=== PATIENT | male | born 1955 | race Caucasian/White ===

== ENCOUNTER 2017-04-12 15:40 | Inpatient (IN) | payer BC ==
[~2017-04-12] VITALS: Ht 185.4 cm; Wt 132.1 kg
[2017-04-12] MEDS ORDERED: OPTIRAY 320 IV PRN (16:15)
[2017-04-12] MEDS ORDERED: LISI20TA3 PO (16:39)
[2017-04-12 16:55] LABS: BASO % 0.3 %; BASO ABS # 0.03 K/uL (0-0.2); COMPLETE YES; EOS % 2.9 %; HEMATOCRIT 43.5 % (42-52); IG% 0.2 %; LYMPH % 28.1 %; LYMPH ABS # 2.64 K/uL (1.2-3.4); MEAN CELL VOLUME 88.6 fL (80-100); MEAN CORPUSCULAR HEMOGLOBIN 30.1 pg (25-34); MEAN PLATELET VOLUME 9.5 fL (7.4-10.4); MONO % 9.7 %; NEUT % 58.8 %; PLATELET COUNT 107 K/uL (130-400); RED BLOOD COUNT 4.91 M/uL (4.7-6.1); WHITE BLOOD COUNT 9.38 K/uL (4.8-10.8)
[2017-04-12 17:05] LABS: PROTHROMBIN TIME (PATIENT) 10.4 SECONDS (9.0-12.0)
[2017-04-12 17:07] LABS: ISTAT CREATININE 1.3 mg/dl (0.6-1.3); ISTAT HEMOGLOBIN 15.3 g/dl (14.0-18.0); ISTAT IONIZED CALCIUM 1.19 mmol/l (1.12-1.32)
[2017-04-12 17:20] LABS: BUN/CREATININE RATIO 20.1 (10-20); CALCIUM 9.1 mg/dl (8.5-10.1); CREATININE 1.3 mg/dl (0.60-1.40); POTASSIUM 4.3 mmol/L (3.5-5.1)
--- NOTE | 2017-04-12 17:50 | DIAGNOSTIC IMAGING REPORT ---
(CHEST FOR PE) ANGIO WITH CT DOSE: 683.80 mGycm HISTORY: Chest pain dyspnea TECHNIQUE: Multiaxial CT images of the chest were performed following the intravenous administration of contrast to evaluate the pulmonary arteries. Maximal intensity projection images were also obtained. A dose lowering technique was utilized adhering to the principles of ALARA. COMPARISON STUDY: None. FINDINGS: Study is positive for diffuse bilateral pulmonary emboli. This involves the left main pulmonary artery with additional involvement of the upper and lower lobe pulmonary arterial vasculature of the left. There is involvement of the right lower lobe pulmonary vasculature on the right. There is no involvement of the main pulmonary artery on the right. There is no evidence for central embolus. Cardiac silhouette is unremarkable. Lungs are considered clear at this time. Minimal lateral pleural thickening right midlung is present with a small calcified granuloma left lung base. IMPRESSION: Extensive bilateral pulmonary emboli. This report was phoned to the emergency room The above report was generated using voice recognition software. It may contain grammatical, syntax or spelling errors. Electronically signed by: Homero Calloway M.D. 04/12/2017 5:25 PM Dictated Date/Time: 04/12/2017 5:19 PM
[2017-04-12] MEDS ORDERED: HEPARIN 25000 UNIT/500 ML D5W ONE (18:25)
[2017-04-12] MEDS ORDERED: HEPARIN SOD 5000 UNIT/0.5 ML CARP ONE (18:25)
[2017-04-12] MEDS ORDERED: ACETAMINOPHEN 325 MG TAB PO PRN (18:30)
[2017-04-12] MEDS ORDERED: ONDANSETRON INJ 2 MG/ML 2 ML VIAL IV PRN (18:30)
--- NOTE | 2017-04-12 18:39 | EMERGENCY ROOM VISIT NOTE ---
History Report prepared by Reynaldo: Rozina Li Under the Supervision of: Dr. Marcelo Duran D.O. First contact with patient: 15:58 Chief Complaint: ABNORMAL DIAGNOSTIC TESTING Stated Complaint: DVT RT LEG, PAIN AND SWELLING History of Present Illness The patient is a 61 year old male who presents to the Emergency Room with complaints of persistent right leg swelling that began several weeks ago. He currently rates his discomfort as an 8/10 in severity. The patient states that he first noticed the pain behind his right knee cap. He states that he has noticed pain to his burgos and thigh. The patient states that recently he has been experiencing shortness of breath with his exertion. He states that he was mowing the grass recently and became short of breath. The patient states that today he saw his PCP and had an ultrasound. He states that the ultrasound revealed a DVT. The patient states that he was referred to the emergency department for further diagnostic testing. He denies any chest pain. Source of History: patient Onset: several weeks ago Position: leg (right) Symptom Intensity: 8/10 Quality: other (swelling) Timing: other (persistent) Associated Symptoms: + SOB, No chest pain Review of Systems See HPI for pertinent positives & negatives. A total of 10 systems reviewed and were otherwise negative. Past Medical & Surgical Medical Problems: (1) Asthma (2) Bilateral pulmonary embolism (3) DVT (deep venous thrombosis) (4) Hypertension (5) Kidney stone Family History Diabetes mellitus Heart disease Hypertension Social History Smoking Status: Former Smoker Smokeless Tobacco Use: No Alcohol Use: none Marital Status: Housing Status: lives with significant other Occupation Status: employed Current/Historical Medications Scheduled Lisinopril (Prinivil), 20 MG PO Q2D Allergies Coded Allergies: Penicillins (Verified Allergy, Unknown, UNKNOWN, 04/12/17) Sulfa Drugs (Verified Allergy, Unknown, UNKNOWN, 04/12/17) Physical Exam Vital Signs Date Time Temp Pulse Resp B/P (MAP) Pulse Ox O2 Delivery O2 Flow Rate FiO2 04/12/17 18:36 72 18 127/84 95 Room Air 04/12/17 17:01 66 04/12/17 16:59 94 Room Air 04/12/17 15:48 36.8 66 20 148/93 95 Room Air Physical Exam CONSTITUTIONAL/VITAL SIGNS: Reviewed / noted above. GENERAL: Non-toxic in appearance. INTEGUMENTARY: Warm, dry, and [place]. HEAD: Normocephalic. EYES: without scleral icterus or trauma. ENT/OROPHARYNX: clear and moist. LYMPHADENOPATHY/NECK: Is supple without lymphadenopathy or meningismus. RESPIRATORY: Lungs clear and equal. CARDIOVASCULAR: Regular rate and rhythm. GI/ABDOMEN: Soft and nontender. No organomegaly or pulsatile mass. No rebound or guarding. Normal bowel sounds. EXTREMITIES: Right leg is swollen compared to left. BACK: No CVA tenderness. NEUROLOGICAL: Intact without focal deficits. PSYCHIATRIC: normal affect. MUSCULOSKELETAL: Normally developed with good muscle tone. Medical Decision & Procedures ER Provider Diagnostic Interpretation: CT results as stated below per my review and radiologist interpretation: (CHEST FOR PE) ANGIO WITH CT DOSE: 683.80 mGycm HISTORY: Chest pain dyspnea TECHNIQUE: Multiaxial CT images of the chest were performed following the intravenous administration of contrast to evaluate the pulmonary arteries. Maximal intensity projection images were also obtained. A dose lowering technique was utilized adhering to the principles of ALARA. COMPARISON STUDY: None. FINDINGS: Study is positive for diffuse bilateral pulmonary emboli. This involves the left main pulmonary artery with additional involvement of the upper and lower lobe pulmonary arterial vasculature of the left. There is involvement of the right lower lobe pulmonary vasculature on the right. There is no involvement of the main pulmonary artery on the right. There is no evidence for central embolus. Cardiac silhouette is unremarkable. Lungs are considered clear at this time. Minimal lateral pleural thickening right midlung is present with a small calcified granuloma left lung base. IMPRESSION: Extensive bilateral pulmonary emboli. This report was phoned to the emergency room The above report was generated using voice recognition software. It may contain grammatical, syntax or spelling errors. Electronically signed by: Homero Calloway M.D. 04/12/2017 5:25 PM Dictated Date/Time: 04/12/2017 5:19 PM Laboratory Results 04/12/17 16:45 Red Blood Count 4.91, Mean Corpuscular Volume 88.6, Mean Corpuscular Hemoglobin 30.1, Mean Corpuscular Hemoglobin Concent 34.0, Mean Platelet Volume 9.5, Neutrophils (%) (Auto) 58.8, Lymphocytes (%) (Auto) 28.1, Monocytes (%) (Auto) 9.7, Eosinophils (%) (Auto) 2.9, Basophils (%) (Auto) 0.3, Neutrophils # (Auto) 5.51, Lymphocytes # (Auto) 2.64, Monocytes # (Auto) 0.91, Eosinophils # (Auto) 0.27, Basophils # (Auto) 0.03 04/12/17 16:45 Test 04/12/17 16:45 04/12/17 16:54 04/12/17 18:24 White Blood Count 9.38 K/uL (4.8-10.8) Red Blood Count 4.91 M/uL (4.7-6.1) Hemoglobin 14.8 g/dL (14.0-18.0) Hematocrit 43.5 % (42-52) Mean Corpuscular Volume 88.6 fL (80-100) Mean Corpuscular Hemoglobin 30.1 pg (25-34) Mean Corpuscular Hemoglobin Concent 34.0 g/dl (32-36) Platelet Count 107 K/uL (130-400) Mean Platelet Volume 9.5 fL (7.4-10.4) Neutrophils (%) (Auto) 58.8 % Lymphocytes (%) (Auto) 28.1 % Monocytes (%) (Auto) 9.7 % Eosinophils (%) (Auto) 2.9 % Basophils (%) (Auto) 0.3 % Neutrophils # (Auto) 5.51 K/uL (1.4-6.5) Lymphocytes # (Auto) 2.64 K/uL (1.2-3.4) Monocytes # (Auto) 0.91 K/uL (0.11-0.59) Eosinophils # (Auto) 0.27 K/uL (0-0.5) Basophils # (Auto) 0.03 K/uL (0-0.2) RDW Standard Deviation 41.0 fL (36.4-46.3) RDW Coefficient of Variation 12.7 % (11.5-14.5) Immature Granulocyte % (Auto) 0.2 % Immature Granulocyte # (Auto) 0.02 K/uL (0.00-0.02) Prothrombin Time 10.4 SECONDS (9.0-12.0) Prothromb Time International Ratio 1.0 (0.9-1.1) Activated Partial Thromboplast Time 26.5 SECONDS (21.0-31.0) Partial Thromboplastin Ratio 1.0 Est Creatinine Clear Calc Drug Dose 86.0 ml/min Estimated GFR () 68.3 Estimated GFR (Non- 58.9 BUN/Creatinine Ratio 20.1 (10-20) Calcium Level 9.1 mg/dl (8.5-10.1) Total Bilirubin 0.8 mg/dl (0.2-1) Direct Bilirubin 0.2 mg/dl (0-0.2) Aspartate Amino Transf (AST/SGOT) 17 U/L (15-37) Alanine Aminotransferase (ALT/SGPT) 27 U/L (12-78) Alkaline Phosphatase 87 U/L (45-117) Total Creatine Kinase 120 U/L (39-308) Creatine Kinase MB 1.2 ng/ml (0.5-3.6) Creatine Kinase MB Ratio 1.0 (0-3.0) Troponin I 0.030 ng/ml (0-0.045) Total Protein 7.8 gm/dl (6.4-8.2) Albumin 3.6 gm/dl (3.4-5.0) Lipase 134 U/L (73-393) Bedside Hemoglobin 15.3 g/dl (14.0-18.0) Bedside Hematocrit 45 % (42-52) Bedside Sodium 137 mEq/L (135-144) Bedside Potassium 4.3 mEq/L (3.3-5.0) Bedside Chloride 103 mEq/L (101-112) Bedside Total CO2 24 mEq/l (24-31) Anion Gap 16.0 mmol/L (16-25) Bedside Blood Urea Nitrogen 27 mg/dl (7-18) Bedside Creatinine 1.3 mg/dl (0.6-1.3) Bedside Glucose (other) 100 mg/dl (70-99) Bedside Ionized Calcium (Andrea) 1.19 mmol/l (1.12-1.32) Laboratory results as stated above per my review. Medications Administered Medications (Trade) Dose Ordered Sig/Tatiana Route Start Time Stop Time Status Last Admin Dose Admin Heparin Sodium/ Dextrose 1 ea NOW STAT N/A 04/12/17 17:32 04/12/17 17:34 DC 04/12/17 18:29 1 EA Heparin Sodium/ Dextrose (Heparin 25,000 Unit/500ml D5W) 25,000 unit STK-MED ONCE .ROUTE 04/12/17 18:25 04/12/17 18:26 DC 04/12/17 18:28 25,000 UNIT Heparin Sodium (Porcine) (Heparin Sq 5000 Unit/0.5ml) 5,000 unit STK-MED ONCE .ROUTE 04/12/17 18:25 04/12/17 18:26 DC 04/12/17 18:27 5,000 UNIT ECG Indication: SOB/dyspnea Rate (beats per minute): 67 Rhythm: normal sinus Findings: no acute ischemic change, no ectopy ED Course 160: Previous medical records were reviewed. The patient was evaluated in room B10. A complete history and physical examination was performed. 1731: Ordered Heparin Sodium/Dextrose 1 ea NA. 1734: I discussed the patients case with Dorcas Call. She is going to evaluate the patient for further treatment. 175: I reevaluated the patient and he is resting comfortably. I discussed the exam findings with him and I discussed the treatment plan. He verbalized complete understanding and agreement. He is going to be evaluated for further treatment. Medical Decision Differentials considered include acute myocardial infarction, acute coronary syndrome, myocarditis, pericarditis, pericardial effusions /tamponade, esophageal perforation, thoracic aortic dissection, pulmonary embolism, pneumonia, pneumothorax, pancreatitis, shingles, acute cholecystitis, and perforated abdominal viscus. This is a 61-year-old male who presents from outpatient ultrasound with a diagnosis of DVT. His DVT is in the distal right lower extremity. He does report some exertional dyspnea. A CT scan of his chest reveals multiple bilateral PE. Blood work was reviewed. The patient was started on IV heparin. I spoke with the hospitalist, who will see the patient for further inpatient evaluation and care. The patient was hemodynamically stable during his stay. Medication Reconcilliation Current Medication List: was personally reviewed by me Blood Pressure Screening Patient's blood pressure: Elevated blood pressure Blood pressure disposition: Elevated BP felt to be situational, Did not require urgent referral Consults Time Called: 1731 Consulting Physician: Dorcas Call Returned Call: 1734 I discussed the patients case with Dorcas Call. She is going to evaluate the patient for further treatment. Impression Primary Impression: Bilateral pulmonary embolism Additional Impression: DVT (deep venous thrombosis) Scribe Attestation The scribe's documentation has been prepared under my direction and personally reviewed by me in its entirety. I confirm that the note above accurately reflects all work, treatment, procedures, and medical decision making performed by me. Departure Information Dispostion Being Evaluated By Hospitalist Referrals Emmanuel Mejia MD (PCP) Problem Qualifiers
[2017-04-12] MEDS ORDERED: OXYCODONE/ACETAMINOPHEN 5-325 TAB PO PRN (19:15)
[2017-04-12] MEDS ORDERED: MoRPHine SULFATE 4 MG/ML 1 ML CARP\\VIAL IV PRN (19:15)
[2017-04-12] MEDS ORDERED: MoRPHine SULFATE 4 MG/ML 1 ML CARP\\VIAL IV ONE (19:15)
[2017-04-12 20:12] VITALS: O2SAT 95
[2017-04-12 20:38] VITALS: BP 138/87; PULSE 82; TEMP 37.2; Ht 185.4 cm; Wt 132.1 kg
--- NOTE | 2017-04-12 20:58 | History and Physical ---
History & Physical Date & Time of Service: Apr 12, 2017 ~ 18:00 Chief Complaint: Shortness of Breath, Right Leg Swelling and Pain Primary Care Physician: Emmanuel Mejia MD History of Present Illness 61 year old male who presents to the ER with right leg swelling and pain and shortness of breath. Patient reports he first started to notice the shortness of breath about 2 weeks ago. He reports that it has been progressively getting worse and will get short of breath with minimal exertion. While mowing the grass with a push mower a couple of weeks ago he reports he felt very lightheaded and dizzy and almost passed out. He reports one additional near syncopal event since then. No headaches or blurred vision. He denies chest pain. He has noticed the right leg to started to swell over the past week. He has pain in his lower thigh extending into the calf. He denies abdominal pain, nausea, vomiting, or diarrhea. No fever or chills. He denies urinary symptoms. Outpatient US showed extensive DVT. CT chest in the ED is showing BL PE. He was started on IV Heparin. 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 Past Medical/Surgical History Medical Problems: (1) Hypertension Status: Chronic (2) Kidney stone Status: Resolved Surgical Problems: (1) H/O ventral hernia repair Status: Chronic Family History CVA MOTHER FH: CAD (coronary artery disease) FATHER MOTHER FH: diabetes mellitus FATHER Social History Smoking Status: Former Smoker Alcohol Use: occasionally Immunizations History of Tetanus Vaccine?: Yes Tetanus Immunization Date: Mar 13, 2013 Multi-Drug Resistant Organisms History of MDRO: No Allergies Coded Allergies: Penicillins (Verified Allergy, Unknown, UNKNOWN, 04/12/17) Sulfa Antibiotics (Verified Allergy, Unknown, UNKNOWN, 04/12/17) Home Medications Scheduled Apixaban (Eliquis), 5 MG PO BID Apixaban (Eliquis), 10 MG PO BID Lisinopril (Prinivil), 20 MG PO Q2D Review of Systems ROS per HPI, all other systems reviewed and negative Physical Exam Vital Signs Date Time Temp Pulse Resp B/P (MAP) Pulse Ox O2 Delivery O2 Flow Rate FiO2 04/12/17 20:12 36.8 72 18 127/84 95 04/12/17 18:36 72 18 127/84 95 Room Air 04/12/17 17:01 66 04/12/17 16:59 94 Room Air 04/12/17 15:48 36.8 66 20 148/93 95 Room Air General Appearance: no apparent distress Head: normocephalic, atraumatic Eyes: normal inspection, EOMI, sclerae normal ENT: hearing grossly normal Neck: supple, no JVD Respiratory/Chest: lungs clear, normal breath sounds, no respiratory distress Cardiovascular: regular rate, rhythm, normal peripheral pulses, + pertinent finding (+2-3 edema to RLE extending from thigh to calf) Abdomen/GI: normal bowel sounds, non tender, soft Extremities/Musculoskelatal: + calf tenderness, + swelling (RLE) Neurologic/Psych: no motor/sensory deficits, alert, normal mood/affect, oriented x 3 Skin: normal color, warm/dry Diagnostics Laboratory Results Results Past 24 Hours Test 04/12/17 16:45 04/12/17 16:54 04/12/17 18:24 04/12/17 20:14 Range/Units White Blood Count 9.38 4.8-10.8 K/uL Red Blood Count 4.91 4.7-6.1 M/uL Hemoglobin 14.8 14.0-18.0 g/dL Hematocrit 43.5 42-52 % Mean Corpuscular Volume 88.6 80-100 fL Mean Corpuscular Hemoglobin 30.1 25-34 pg Mean Corpuscular Hemoglobin Concent 34.0 32-36 g/dl Platelet Count 107 130-400 K/uL Mean Platelet Volume 9.5 7.4-10.4 fL Neutrophils (%) (Auto) 58.8 % Lymphocytes (%) (Auto) 28.1 % Monocytes (%) (Auto) 9.7 % Eosinophils (%) (Auto) 2.9 % Basophils (%) (Auto) 0.3 % Neutrophils # (Auto) 5.51 1.4-6.5 K/uL Lymphocytes # (Auto) 2.64 1.2-3.4 K/uL Monocytes # (Auto) 0.91 0.11-0.59 K/uL Eosinophils # (Auto) 0.27 0-0.5 K/uL Basophils # (Auto) 0.03 0-0.2 K/uL RDW Standard Deviation 41.0 36.4-46.3 fL RDW Coefficient of Variation 12.7 11.5-14.5 % Immature Granulocyte % (Auto) 0.2 % Immature Granulocyte # (Auto) 0.02 0.00-0.02 K/uL Prothrombin Time 10.4 9.0-12.0 SECONDS Prothromb Time International Ratio 1.0 0.9-1.1 Activated Partial Thromboplast Time 26.5 21.0-31.0 SECONDS Partial Thromboplastin Ratio 1.0 Sodium Level 138 136-145 mmol/L Potassium Level 4.3 3.5-5.1 mmol/L Chloride Level 105 98-107 mmol/L Carbon Dioxide Level 26 21-32 mmol/L Anion Gap 7.0 16.0 16-25 mmol/L Blood Urea Nitrogen 26 7-18 mg/dl Creatinine 1.30 0.60-1.40 mg/dl Est Creatinine Clear Calc Drug Dose 86.0 ml/min Estimated GFR () 68.3 Estimated GFR (Non- 58.9 BUN/Creatinine Ratio 20.1 10-20 Random Glucose 92 70-99 mg/dl Calcium Level 9.1 8.5-10.1 mg/dl Total Bilirubin 0.8 0.2-1 mg/dl Direct Bilirubin 0.2 0-0.2 mg/dl Aspartate Amino Transf (AST/SGOT) 17 15-37 U/L Alanine Aminotransferase (ALT/SGPT) 27 12-78 U/L Alkaline Phosphatase 87 45-117 U/L Total Creatine Kinase 120 39-308 U/L Creatine Kinase MB 1.2 0.5-3.6 ng/ml Creatine Kinase MB Ratio 1.0 0-3.0 Troponin I 0.030 0-0.045 ng/ml Total Protein 7.8 6.4-8.2 gm/dl Albumin 3.6 3.4-5.0 gm/dl Lipase 134 73-393 U/L Bedside Hemoglobin 15.3 14.0-18.0 g/dl Bedside Hematocrit 45 42-52 % Bedside Sodium 137 135-144 mEq/L Bedside Potassium 4.3 3.3-5.0 mEq/L Bedside Chloride 103 101-112 mEq/L Bedside Total CO2 24 24-31 mEq/l Bedside Blood Urea Nitrogen 27 7-18 mg/dl Bedside Creatinine 1.3 0.6-1.3 mg/dl Bedside Glucose (other) 100 70-99 mg/dl Bedside Ionized Calcium (Andrea) 1.19 1.12-1.32 mmol/l Diagnostic Radiology CTA CHEST IMPRESSION: Extensive bilateral pulmonary emboli. RLE DOPPLER US FINDINGS: Thrombus remains in within the right superficial femoral vein, popliteal vein, posterior tibial as well as peroneal veins. Compressibility is compromise. 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 Agree with above H and P. Briefly 61 m presents with right leg swelling and pain since about a week which is getting progressively worsened and also sob on exertion. He was found to have DVT by ultrasound in his PCP office. He ct scan showed b/l PE in Er. Currently resting comfortably and hemodynamically stable. Denies chest pain. No nausea. No fevers. p/e Ge not in distress Cvs s1 and s2 heard no murmurs Rs cta b/l no added sounds Abd benign Supervisor/Port Director non focal Ext right leg swollen. a/p Acute DVT B/L PE starting on iv heparin 'patient wants to be on novel anticoagulants will consult social service to help with insurance approval for newer anticoagulants monitor in tele HTn on lisinopril VTE Prophylaxis VTE Risk Assessment Done? Y/N: Yes Risk Level: High Given or contraindicated: Other Anticoagulation
[2017-04-12 21:04] LABS: HEMATOCRIT 44.4 % (42-52); MEAN CELL VOLUME 89.3 fL (80-100); MEAN CORPUSCULAR HEMOGLOBIN 30.2 pg (25-34); MEAN CORPUSCULAR HGB CONC 33.8 g/dl (32-36); MEAN PLATELET VOLUME 9.7 fL (7.4-10.4); PLATELET COUNT 114 K/uL (130-400); RED BLOOD COUNT 4.97 M/uL (4.7-6.1); WHITE BLOOD COUNT 9.74 K/uL (4.8-10.8)
[2017-04-12] MEDS: HEPARIN 25,000 UNIT/500ML D5W 500 ML IV PRN (22:22)
[2017-04-13 00:22] VITALS: BP 123/68; PULSE 62; TEMP 36.8; O2SAT 90
[2017-04-13 01:13] LABS: PARTIAL THROMBOPLASTIN RATIO 1.8
[2017-04-13] MEDS ORDERED: HEPARIN IV BOLUS 4,000 UNIT in SYRINGE 0 ML IV ONE (01:45)
[2017-04-13] MEDS: HEPARIN 25,000 UNIT/500ML D5W 500 ML IV PRN ×3 (01:52→08:48)
[2017-04-13 04:31] VITALS: BP 129/70; PULSE 53; TEMP 36.6; O2SAT 94
[2017-04-13 07:34] VITALS: BP 116/69; PULSE 54; TEMP 36.5; O2SAT 94
[2017-04-13 08:02] LABS: MEAN CELL VOLUME 87.9 fL (80-100); MEAN CORPUSCULAR HEMOGLOBIN 31.4 pg (25-34); MEAN CORPUSCULAR HGB CONC 35.8 g/dl (32-36); MEAN PLATELET VOLUME 9.2 fL (7.4-10.4); PLATELET COUNT 105 K/uL (130-400); RED BLOOD COUNT 4.55 M/uL (4.7-6.1); WHITE BLOOD COUNT 7.48 K/uL (4.8-10.8)
[2017-04-13 08:23] LABS: BUN/CREATININE RATIO 17.4 (10-20); CREATININE 1.2 mg/dl (0.60-1.40); POTASSIUM 4.5 mmol/L (3.5-5.1)
[2017-04-13 08:24] LABS: PARTIAL THROMBOPLASTIN RATIO 2.9
[2017-04-13] MEDS ORDERED: LISINOPRIL 20 MG TAB PO SCH (09:00)
--- NOTE | 2017-04-13 11:51 | ECHOCARDIOGRAM REPORT ---
*NOTICE TO RECEIVING LIBERTARIAN AGENCY This information is strictly Confidential and protected under [place] law. [place] law prohibits you from making any further disclosure of this information unless further disclosure is expressly permitted by the written consent of the person to whom it pertains or is authorized by law. A general authorization for the release of medical or other information is not sufficient for this purpose. Hospital accepts no responsibility if the information is made available to any other person, INCLUDING THE PATIENT. Interpretation Summary * Name: ZIGGY SANTACRUZ Study Date: 04/13/2017 08:38 AM * Patient Location: C.EDB HR: 58 * : 1955 (M/d/yyyy) Gender: Male Height: 71 in * Age: 61 yrs Ethnicity: CA Weight: 297 lb * Ordering Physician: Asha Croft * Referring Physician: Emmanuel Mejia * Performed By: Mohit Woodard RCS * * Reason For Study: Pulmonary Embolism * BSA: 2.5 m2 * The study was technically difficult. * There is no comparison study available. * -- Conclusions -- * Left ventricular systolic function is normal. * Ejection Fraction = 60-65%. * There is mild concentric left ventricular hypertrophy. * The left atrium is mildly dilated. * Diastolic dysfunction, Grade II (pseudonormalization pattern). * The right ventricular cavity size is normal (basal dimension <4.2 cm in right ventricular apical 4-chamber view). * The right ventricular systolic function is normal as assessed by tricuspid annular plane systolic excursion (TAPSE) (normal >1.5 cm). Procedure Details * A complete two-dimensional transthoracic echocardiogram was performed (2D, M-mode, Doppler and color flow Doppler). Left Ventricle * The left ventricle is normal in size. * Apical trabeculae are present. * There is mild concentric left ventricular hypertrophy. * Left ventricular systolic function is normal. * Ejection Fraction = 60-65%. * The left ventricular wall motion is normal. Right Ventricle * The right ventricular cavity size is normal (basal dimension <4.2 cm in right ventricular apical 4-chamber view). * The right ventricular systolic function is normal as assessed by tricuspid annular plane systolic excursion (TAPSE) (normal >1.5 cm). Atria * The left atrium is mildly dilated. * Right atrial size is normal. * There is no evidence of atrial septal defect, but resolution does not allow assessment for a patent foramen ovale. Mitral Valve * The mitral valve is normal. * There is no mitral valve stenosis. * Significant mitral regurgitation is absent. Tricuspid Valve * The tricuspid valve is not well visualized. * There is no tricuspid stenosis. * Significant tricuspid regurgitation is absent. Aortic Valve * The aortic valve is trileaflet. * Aortic stenosis is absent. * There is no significant aortic regurgitation. Pulmonic Valve * The pulmonary valve is not well seen, but the Doppler examination is normal without significant regurgitation or stenosis. Great Vessels * The aortic root and proximal ascending aorta are normal sized. Pericardium/Pleural * There is no pericardial effusion. Great Vessels * Normal inferior vena cava diameter and respiratory variation suggests normal central venous pressure. Left Ventricular Diastolic Function * Diastolic dysfunction, Grade II (pseudonormalization pattern). MMode 2D Measurements and Calculations IVSd 1.1 cm LVIDd 5.2 cm LVIDs 2.5 cm LVPWd 1.1 cm IVS/LVPW 1.1 FS 51.7 % EDV(Teich) 131.9 ml ESV(Teich) 23.0 ml EF(Teich) 82.6 % EDV(cubed) 144.0 ml ESV(cubed) 16.2 ml EF(cubed) 88.8 % LV mass(C)d 223.3 grams LV mass(C)dI 89.5 grams/m\S\2 SV(Teich) 108.9 ml SI(Teich) 43.7 ml/m\S\2 SV(cubed) 127.8 ml SI(cubed) 51.2 ml/m\S\2 Ao root diam 3.3 cm Ao root area 8.8 cm\S\2 LVOT diam 2.3 cm LVOT area 4.2 cm\S\2 EDV(MOD-sp4) 121.2 ml ESV(MOD-sp4) 32.6 ml EF(MOD-sp4) 73.1 % EDV(MOD-sp2) 113.7 ml ESV(MOD-sp2) 43.9 ml EF(MOD-sp2) 61.4 % SV(MOD-sp4) 88.6 ml SI(MOD-sp4) 35.5 ml/m\S\2 SV(MOD-sp2) 69.8 ml SI(MOD-sp2) 28.0 ml/m\S\2 Doppler Measurements and Calculations MV E max arianne 76.1 cm/sec MV A max arianne 54.8 cm/sec MV E/A 1.4 MV dec time 0.32 sec Ao V2 max 169.5 cm/sec Ao max PG 11.5 mmHg Ao max PG (full) 7.0 mmHg STARR(V,A) 2.6 cm\S\2 STARR(V,D) 2.6 cm\S\2 LV V1 max PG 4.5 mmHg LV V1 max 106.1 cm/sec
[2017-04-13 12:15] VITALS: BP 121/76; PULSE 58; TEMP 36.7; O2SAT 94
[2017-04-13] MEDS ORDERED: APIXABAN 2.5 MG TAB PO STA (13:04)
[2017-04-13] MEDS ORDERED: APIX1TAB3 PO ×2 (13:07→19:14)
--- NOTE | 2017-04-13 13:12 | Discharge Instructions ---
Discharge Instructions Admission Admission Date: Apr 12, 2017 at 18:26 Admission Diagnosis: Bilateral Pulmonary Embolism, Dvt. Discharge Care Plan - Problem: (1) DVT (deep venous thrombosis) (2) Pulmonary embolism Date of VTE Diagnosis: Apr 12, 2017 Time of VTE Diagnosis: 16:00 Care Plan - Goal(s): Decrease discomfort, Improve function Care Plan - Instructions: Activity Recommendations: limitations (as tolerated. no heavy lifting until seen by family doctor) Recommended Home Diet: AHA Phase I (2gmNa/LoCho) (iv heparin) Provider Instructions: Medication Instructions: * Warfarin is a medicine prescribed to prevent blood clots * Warfarin will thin your blood and help prevent new clots * Take your medications exactly as directed * Never skip a dose. Never take a double dose. If you miss a dose, take it as soon as you remember * It is important for your doctor to monitor your prothrombin time (PT). This is a lab test * Keep your appointment for lab tests Risk of Adverse Drug Reactions and Interactions: * Warfarin increases your risk of bleeding * The food you eat and other medications you take can affect how Warfarin works in your body * Ask your doctor about daily aspirin therapy * It is very important to talk with your doctor about all of the other medicines, antibiotics, vitamins or herbal products that you are taking * All of your medication must be approved by your doctor, including new medicines, as well as medicines you have taken before you started taking Warfarin Diet: * In order for Warfarin to work properly, it is important to keep your intake of Vitamin K as consistent as possible * You should avoid any sudden change in Vitamin K intake * Report any significant changes in your diet or weight to your doctor Call your Doctor if you experience any of the following: * Swelling or Pain in your leg * Sudden, continuous pain deep in a muscle * Pain that worsens when you are active or when you stand still for a long time * Chest Pain * Sudden Shortness of Breath * Rapid or pounding heart beat * Fainting * Dizziness * Cough with blood or bloody sputum * Sweating more than normal * Bruises * heavy or uncontrolled bleeding * Blood in your urine, stool or vomit * Black or tarry stools Caring for Your Self at Home: * Avoid sitting, standing or lying down for long periods without moving your legs and feet * When traveling by car, stop to get out and move around at least once every 3 hours * On long airplane, train or bus rides, get up and move around when possible * If you can't get up, wiggle your toes and tighten your calves to keep your blood moving Follow Up: * It is important for you to keep your follow up appointments with your medical provider. Follow-up Anticoagulation Therapy: Name and Phone number of Health professional/clinic/office monitoring the anticoagulation therapy: Next Date of PT/INR Laboratory Blood Draw: VTE Core Measures Inpt VTE Proph given/why not?: Other Anticoagulation Reason no anticoag overlap I/P: Treatment not indicated (DISCHARGING ON ELIQUIS ) Reason no anticoag overlap @DC: Treatment not indicated (DISCHARGING ON ELIQUIS ) Follow Up Follow-Up: FOLLOWUP WITH FAMILY DOCTOR Emmanuel Bunn ON March AT 10:45AM. ELIQUIS 10MG PO TWICE DAILY FOR ONE WEEK THEN ELIQUIS 5MG PO TWICE DAILY. DURATION OF ELIQUIS PER FAMILY DOCTOR. Work Instructions Return To Work: 1 day (MAY GO TO WORK TOMORROW. BUT NO STRENOUS ACTIVITY AND NO HEAVY LIFTING UNTIL SEEN BY PCP) Lifting Limitations: no more than 10 pounds (UNTIL SEEN BY FAMILY DOCTOR. NO STRENOUS ACTIVITY UNTIL SEEN BY PCP.) Sheila Bonilla Recommendations: Call your doctor if: * Temperature above 101 degrees * Pain not relieved by pain medicine ordered * There is increased drainage or redness from any incision * You have any unanswered questions or concerns. Your Doctors Instructions noted above were prepared by provider Olayinka Cheng.
[2017-04-13 14:24] VITALS: BP 121/76; PULSE 58; TEMP 36.7; O2SAT 94
--- NOTE | 2017-04-13 19:29 | Progress Note ---
Internal Med Progress Note Date of Service: Apr 13, 2017. Provider Documentation: SUBJECTIVE: RESTING COMFORTABLY AFEBRILE NO CHEST PAIN OR SOB NO PAIN IN HIS LEG TODAY WANTS TO BE DISCHARGED OBJECTIVE: Vital Signs-as noted below Exam: General-alert and awake. Not in distress ENT-normal hearing Neck-no neck masses Lungs-cta b/l no wheezing or crackles Heart-s1 and s2 heard regular rhythm no murmurs Abdomen-soft bowel sounds present non tender no distension Extremities- no erythema Neuro-alert and awake moves extremities Lab data as noted below. 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 - f/u with pcp hemodynamically stable, saturating well on room air started on IV Heparin discharged on eliquis followup with pcp duration of eliquis as per pcp HTN on Lisinopril discharged home Vital Signs: Date Time Temp Pulse Resp B/P (MAP) Pulse Ox O2 Delivery O2 Flow Rate FiO2 04/13/17 14:24 36.7 58 18 94 Room Air 04/13/17 12:15 36.7 58 18 121/76 (91) 94 04/13/17 08:00 Room Air 04/13/17 07:34 36.5 54 20 116/69 (85) 94 04/13/17 04:31 36.6 53 20 129/70 (89) 94 Room Air 04/13/17 04:00 Room Air 04/13/17 00:22 36.8 62 20 123/68 (86) 90 Room Air 04/13/17 00:00 Room Air 04/12/17 20:38 37.2 82 20 138/87 Room Air 04/12/17 20:12 36.8 72 18 127/84 95 Lab Results: Results Past 24 Hours Test 04/12/17 20:49 04/13/17 00:43 04/13/17 07:46 Range/Units White Blood Count 9.74 7.48 4.8-10.8 K/uL Red Blood Count 4.97 4.55 4.7-6.1 M/uL Hemoglobin 15.0 14.3 14.0-18.0 g/dL Hematocrit 44.4 40.0 42-52 % Mean Corpuscular Volume 89.3 87.9 80-100 fL Mean Corpuscular Hemoglobin 30.2 31.4 25-34 pg Mean Corpuscular Hemoglobin Concent 33.8 35.8 32-36 g/dl RDW Standard Deviation 42.0 41.3 36.4-46.3 fL RDW Coefficient of Variation 12.9 12.8 11.5-14.5 % Platelet Count 114 105 130-400 K/uL Mean Platelet Volume 9.7 9.2 7.4-10.4 fL Hepatitis C Antibody Screen NEG NEG Activated Partial Thromboplast Time 46.4 75.2 21.0-31.0 SECONDS Partial Thromboplastin Ratio 1.8 2.9 Sodium Level 140 136-145 mmol/L Potassium Level 4.5 3.5-5.1 mmol/L Chloride Level 106 98-107 mmol/L Carbon Dioxide Level 30 21-32 mmol/L Anion Gap 4.0 3-11 mmol/L Blood Urea Nitrogen 21 7-18 mg/dl Creatinine 1.20 0.60-1.40 mg/dl Est Creatinine Clear Calc Drug Dose 92.1 ml/min Estimated GFR () 75.2 Estimated GFR (Non- 64.9 BUN/Creatinine Ratio 17.4 10-20 Random Glucose 114 70-99 mg/dl Calcium Level 9.0 8.5-10.1 mg/dl
--- NOTE | 2017-04-13 19:31 | Discharge Summary ---
Discharge Summary Date of Service Apr 13, 2017. Discharge Summary Admission Date: Apr 12, 2017 at 18:26 Discharge Date: Apr 13, 2017 Discharge Disposition: Home Principal Diagnosis: ACUTE DVT ACUTE PE Secondary Diagnoses/Problems: (1) Hypertension Status: Chronic (2) Kidney stone Status: Resolved Procedures: CTA CHEST: Extensive bilateral pulmonary emboli. ECHO: Left ventricular systolic function is normal. * Ejection Fraction = 60-65%. * There is mild concentric left ventricular hypertrophy. * The left atrium is mildly dilated. * Diastolic dysfunction, Grade II (pseudonormalization pattern). * The right ventricular cavity size is normal (basal dimension <4.2 cm in right ventricular apical 4-chamber view). * The right ventricular systolic function is normal as assessed by tricuspid annular plane systolic excursion (TAPSE) (normal >1.5 cm). Medication Reconciliation New Medications: Apixaban (Eliquis) 5 Mg Tab 5 MG PO BID for 30 Days, #60 TAB 3 Refills Apixaban (Eliquis) 5 Mg Tab 10 MG PO BID for 7 Days, #28 TAB Continued Medications: Lisinopril (Prinivil) 20 Mg Tab 20 MG PO Q2D Admission Information HPI (per Admitting provider): 61 year old male who presents to the ER with right leg swelling and pain and shortness of breath. Patient reports he first started to notice the shortness of breath about 2 weeks ago. He reports that it has been progressively getting worse and will get short of breath with minimal exertion. While mowing the grass with a push mower a couple of weeks ago he reports he felt very lightheaded and dizzy and almost passed out. He reports one additional near syncopal event since then. No headaches or blurred vision. He denies chest pain. He has noticed the right leg to started to swell over the past week. He has pain in his lower thigh extending into the calf. He denies abdominal pain, nausea, vomiting, or diarrhea. No fever or chills. He denies urinary symptoms. Outpatient US showed extensive DVT. CT chest in the ED is showing BL PE. He was started on IV Heparin. 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 Physical Exam (per Admitting): General Appearance: no apparent distress Head: normocephalic, atraumatic Eyes: normal inspection, EOMI, sclerae normal ENT: hearing grossly normal Neck: supple, no JVD Respiratory/Chest: lungs clear, normal breath sounds, no respiratory distress Cardiovascular: regular rate, rhythm, normal peripheral pulses, + pertinent finding (+2-3 edema to RLE extending from thigh to calf) Abdomen/GI: normal bowel sounds, non tender, soft Extremities/Musculoskelatal: + calf tenderness, + swelling (RLE) Neurologic/Psych: no motor/sensory deficits, alert, normal mood/affect, oriented x 3 Skin: normal color, warm/dry Hospital Course ACUTE BILATERAL PE, RLE DVT presenting with 2 weeks of increasing shortness of breath and increased RLE for 1 week; outpatient US shows extensive RLE DVT and CT chest is showing BL PEs 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 Discharge Instructions Discharge Instructions Admission Admission Date: Apr 12, 2017 at 18:26 Admission Diagnosis: Bilateral Pulmonary Embolism, Dvt. Discharge Care Plan - Problem: (1) DVT (deep venous thrombosis) (2) Pulmonary embolism Date of VTE Diagnosis: Apr 12, 2017 Time of VTE Diagnosis: 16:00 Care Plan - Goal(s): Decrease discomfort, Improve function Care Plan - Instructions: Activity Recommendations: limitations (as tolerated. no heavy lifting until seen by family doctor) Recommended Home Diet: AHA Phase I (2gmNa/LoCho) (iv heparin) Provider Instructions: Medication Instructions: * Warfarin is a medicine prescribed to prevent blood clots * Warfarin will thin your blood and help prevent new clots * Take your medications exactly as directed * Never skip a dose. Never take a double dose. If you miss a dose, take it as soon as you remember * It is important for your doctor to monitor your prothrombin time (PT). This is a lab test * Keep your appointment for lab tests Risk of Adverse Drug Reactions and Interactions: * Warfarin increases your risk of bleeding * The food you eat and other medications you take can affect how Warfarin works in your body * Ask your doctor about daily aspirin therapy * It is very important to talk with your doctor about all of the other medicines, antibiotics, vitamins or herbal products that you are taking * All of your medication must be approved by your doctor, including new medicines, as well as medicines you have taken before you started taking Warfarin Diet: * In order for Warfarin to work properly, it is important to keep your intake of Vitamin K as consistent as possible * You should avoid any sudden change in Vitamin K intake * Report any significant changes in your diet or weight to your doctor Call your Doctor if you experience any of the following: * Swelling or Pain in your leg * Sudden, continuous pain deep in a muscle * Pain that worsens when you are active or when you stand still for a long time * Chest Pain * Sudden Shortness of Breath * Rapid or pounding heart beat * Fainting * Dizziness * Cough with blood or bloody sputum * Sweating more than normal * Bruises * heavy or uncontrolled bleeding * Blood in your urine, stool or vomit * Black or tarry stools Caring for Your Self at Home: * Avoid sitting, standing or lying down for long periods without moving your legs and feet * When traveling by car, stop to get out and move around at least once every 3 hours * On long airplane, train or bus rides, get up and move around when possible * If you can't get up, wiggle your toes and tighten your calves to keep your blood moving Follow Up: * It is important for you to keep your follow up appointments with your medical provider. Follow-up Anticoagulation Therapy: Name and Phone number of Health professional/clinic/office monitoring the anticoagulation therapy: Next Date of PT/INR Laboratory Blood Draw: VTE Core Measures Inpt VTE Proph given/why not?: Other Anticoagulation Reason no anticoag overlap I/P: Treatment not indicated (DISCHARGING ON ELIQUIS ) Reason no anticoag overlap @[facility]: Treatment not indicated (DISCHARGING ON ELIQUIS ) Follow Up Follow-Up: FOLLOWUP WITH FAMILY DOCTOR Emmanuel Bunn ON March AT 10:45AM. ELIQUIS 10MG PO TWICE DAILY FOR ONE WEEK THEN ELIQUIS 5MG PO TWICE DAILY. DURATION OF ELIQUIS PER FAMILY DOCTOR. Work Instructions Return To Work: 1 day (MAY GO TO WORK TOMORROW. BUT NO STRENOUS ACTIVITY AND NO HEAVY LIFTING UNTIL SEEN BY PCP) Lifting Limitations: no more than 10 pounds (UNTIL SEEN BY FAMILY DOCTOR. NO STRENOUS ACTIVITY UNTIL SEEN BY PCP.) Sheila Bonilla Recommendations: Call your doctor if: * Temperature above 101 degrees * Pain not relieved by pain medicine ordered * There is increased drainage or redness from any incision * You have any unanswered questions or concerns.
[2017-04-21 01:37] LABS: ANTITHROMBINIII ACTIVITY** 93 % activity (80-120); B2 GLYCOPROTEIN IGA <9 SAU (<=20); B2 GLYCOPROTEIN IGG <9 SGU (<=20); B2 GLYCOPROTEIN IGM <9 SMU (<=20); LUPUS ANTICOAGULANT** TC36573X Weak Positive (Negative); PROTEIN C ACTIVITY** TC 1777X 96 % (70-180)
== END 2017-04-13 14:29 | disposition home or self-care (01) | DRG 299 ==
LOC: C.EDB 15:42 → C.MED 18:26 → ENRESERV 18:46
PROVIDERS: ADMIT Internal Medicine; ATTEND Internal Medicine
DX: I82.401 Acute embolism and thrombosis of unspecified deep veins of right lower extremity (principal); I26.99 Other pulmonary embolism without acute cor pulmonale; I10 Essential (primary) hypertension; Z87.891 Personal history of nicotine dependence; Z79.899 Other long term (current) drug therapy; I82.4Y1 Acute embolism and thrombosis of unspecified deep veins of right proximal lower extremity; I82.4Z1 Acute embolism and thrombosis of unspecified deep veins of right distal lower extremity

== ENCOUNTER → 2017-04-12 | Outpatient (CLI) | payer BC ==
[~2017-04-12] MED LIST: APIX1TAB3 PO; LISI20TA3 PO
--- NOTE | 2017-04-12 15:24 | DIAGNOSTIC IMAGING REPORT ---
RIGHT VENOUS DOPP LOWER EXT UNILAT CLINICAL HISTORY: RT LEG PAIN AND SWELLING Right pain. Edema. TECHNIQUE: Ultrasound COMPARISON STUDY: None FINDINGS: Thrombus remains in within the right superficial femoral vein, popliteal vein, posterior tibial as well as peroneal veins. Compressibility is compromise. IMPRESSION: Acute deep venous thrombosis involving the distal thigh and lower leg The above report was generated using voice recognition software. It may contain grammatical, syntax or spelling errors. Electronically signed by: Homero Calloway M.D. 04/12/2017 3:22 PM Dictated Date/Time: 04/12/2017 3:22 PM
== END | disposition home or self-care (01) ==
LOC: C.ULTR 14:42
PROVIDERS: ATTEND Internal Medicine
DX: I82.4Y1 Acute embolism and thrombosis of unspecified deep veins of right proximal lower extremity (principal); I82.4Z1 Acute embolism and thrombosis of unspecified deep veins of right distal lower extremity

== ENCOUNTER 2021-09-03 09:40 | Inpatient (IN) ==
[2021-09-03] MEDS ORDERED: ACETAMINOPHEN 1,000 MG/100 ML VIAL IV STA (09:53)
--- NOTE | 2021-09-03 09:58 | Emergency Department Note ---
History of Present Illness General Chief complaint: Abdominal Pain Stated complaint: PAIN IN ULQ, POSSIBLE BLOOD CLOT Time Seen by Provider: 09/03/21 09:48 Source: patient Mode of arrival: ambulatory Limitations: no limitations History of Present Illness Provider complaint: Right rib pain, short of breath Onset (ago): day(s) 4 Location: chest Maximum Pain Intensity: 10 Associated symptoms: + shortness of breath; no chest pain, no cough, no fever/chills, no nausea/vomiting or no syncope Treatments prior to arrival: none This is a 65-year-old male presents emergency department complaining of 4 days of right rib pain and increasing shortness of breath. Patient denies any trauma or change in activity. Patient states the pain is similar to when he had broken ribs many years ago. Patient denies any recent cough or upper respiratory symptoms. He denies fevers or chills. Patient denies any other chest pain or radiation of the pain over the right lateral ribs. He denies nausea, vomiting, back pain, change in bowel or bladder function. He denies noticing any overlying rash or sores. Patient states he does not smoke currently, however used to smoke 4 packs a day. Patient states he did previously have a DVT that he was told went to his lungs. He states he took medication for that for several months and then he was able to stop. Denies any family history of DVT/PE. Denies any recent leg swelling or calf tenderness. Patient states breathing and pain are worse with exertion and attempts at laying flat. He states he had been taking Excedrin at home to try and deal with the pain without any relief. Pt seen during a time of high acuity and national emergency pandemic while wearing PPE. Home Medications Medication Instructions Recorded Confirmed Type No Known Home Medications 09/03/21 09/03/21 History Allergies Allergy/AdvReac Type Severity Reaction Status Date / Time Penicillins Allergy Unknown UNKNOWN Verified 04/12/17 16:39 Sulfa (Sulfonamide Allergy Unknown UNKNOWN Verified 04/12/17 20:16 Antibiotics) Past Med/Surg History Medical History History of DVT (deep vein thrombosis) History of pulmonary embolism Hypertension Surgical History H/O ventral hernia repair Family History Father Cancer Mother Hypertension Stroke Denies family history of Clotting disorder Social History (Updated 09/03/21 @ 13:23 by MANUELA Call) Smoking Status: Former smoker Hx Alcohol Use: Yes Alcohol type: beer Alcohol Intake Frequency: Monthly or Less Feels Safe at Home: Yes Review of Systems A total of 10 systems reviewed and were otherwise negative All systems reviewed & are unremarkable except as noted in HPI & below Physical Exam Vital Signs Vital Signs - 24 hr 09/03/21 09:44 09/03/21 10:50 09/03/21 12:00 Temperature 37.2 C Temperature Source Temporal Artery Scan Pulse Rate 79 Pulse Rate [Apical] 90 85 Pulse Rhythm [Apical] Regular Respiratory Rate 28 H 20 25 H Respiratory Effort / Characteristics Short of Breath Respiratory Depth Normal Respiratory Pattern Regular Blood Pressure 159/95 H Blood Pressure [Right Arm] 155/86 H 145/100 H Blood Pressure Mean 116 Blood Pressure Mean [Right Arm] 109 115 Blood Pressure Position Sitting Blood Pressure Position [Right Arm] Lying Pulse Oximetry 88 L 92 96 Oxygen Delivery Method Room Air Nasal Cannula Nasal Cannula Oxygen Flow Rate 2 2 Sepsis Recent Fever Within 48 Hours No Sepsis New/Unexplained Change in Mental Status No Sepsis Action Taken by Nursing No Action Required GENERAL: alert, uncomfortable appearing, well nourished, mild distress, non-toxic, standing up and pacing the room EYE EXAM: normal conjunctiva, PERRL and EOM's grossly intact OROPHARYNX: no exudate, no erythema, lips, buccal mucosa, and tongue normal and mucous membranes are moist NECK: supple, no nuchal rigidity, no adenopathy, non-tender LUNGS: Clear to auscultation. Normal chest wall mechanics, no w/r/r, tachypnea noted, no retractions, no increased work of breathing HEART: no murmurs, S1 normal and S2 normal, tachycardic ABDOMEN: abdomen soft, non-tender, normo-active bowel sounds, no masses, no rebound or guarding. BACK: Back is symmetrical on inspection and there is no deformity, no midline tenderness, no CVA tenderness. SKIN: no rashes and no bruising UPPER EXTREMITIES: upper extremities are grossly normal. FROM, nml pulses b/l. LOWER EXTREMITIES: No pitting edema. FROM, nml pulses b/l. NEURO EXAM: Normal sensorium, cranial nerves II-XII grossly intact, normal speech, no gross weakness of arms, no gross weakness of legs. Gross sensation intact. Course Course 1002: Pt still in mild distress, reluctant to sit in bed. IV started and EKG done. 1032: Pt updated on results and need for CT. Pain slightly improved with meds. 1152: Pt updated on results. Discussed with Dorcas Barry [facility] hospitalist [facility]. Administered Medications Fentanyl Citrate (Fentanyl Citrate 100 Mcg/2 Ml Vial) 50 mcg IV Q15M PRN PRN Reason: Pain Stop: 09/17/21 10:06 Last Admin: 09/03/21 12:08 Dose: 50 mcg Documented by: [id number] Admin: 09/03/21 10:13 Dose: 50 mcg Documented by: [id number] Sodium Chloride (Nss 1000ml) 1,000 mls @ 125 mls/hr IV .Q8H JIM Stop: 10/03/21 10:14 Last Infusion: 09/03/21 14:51 Dose: 0 mls/hr Documented by: [id number] Admin: 09/03/21 10:15 Dose: 125 mls/hr Documented by: [id number] Heparin Sodium/Dextrose (Heparin Sodium/Dextrose) 25,000 units in 500 mls @ 0.02 mls/hr IV .Q24H JIM; Protocol Stop: 10/03/21 12:14 Last Admin: 09/03/21 12:19 Dose: 1,800 units/hr, 36 mls/hr Documented by: [id number] Cosigned by: [id number] Morphine Sulfate (Morphine Sulfate 4 Mg/Ml 1 Ml Carp\Vial) 4 mg IV Q4H PRN PRN Reason: pain Stop: 09/17/21 12:49 Last Admin: 09/03/21 14:52 Dose: 4 mg Documented by: [id number] Discontinued Medications Heparin Sodium (Porcine) (Heparin Sod (Porcine) 1000 Unit/Ml) 1 units IV NOW ONE Stop: 09/03/21 12:03 Last Admin: 09/03/21 12:18 Dose: 5,000 units Documented by: [id number] Cosigned by: [id number] Acetaminophen (Ofirmev) 1,000 mg in 100 mls @ 400 mls/hr IV NOW STA Stop: 09/03/21 10:07 Last Infusion: 09/03/21 14:50 Dose: 0 mls/hr Documented by: [id number] Admin: 09/03/21 10:04 Dose: 400 mls/hr Documented by: [id number] Ioversol (Optiray 320 125ml) 120 ml IV ONCE ONE Stop: 09/03/21 11:16 Last Admin: 09/03/21 11:15 Dose: 120 ml Documented by: [id number] Critical Care Time Critical Care Time: Yes Total Critical Care Time: 43 Critical care of 43 min performed to assess and manage high likelihood of life- threatening pulmonary embolism, involving labs and imaging performed with a ssessment to evaluate chest pain diagnosis with frequent reassessment. This time includes bedside time, treatment discussions with patient/family/consultants, documentation time and excludes procedure time. Medical Decision Making Differential Diagnosis Differential diagnoses includes but is not limited to pneumonia, bronchitis, COPD/Asthma exacerbation, pneumothorax, pulmonary embolism, congestive heart failure, acute coronary syndrome Medical Records Attestation: I reviewed the patient's medical records. Home Medications Current Medication List: was personally reviewed by me Laboratory Data Attestation: I reviewed the patient's lab results. Result diagrams: 09/03/21 10:05 09/03/21 10:05 Lab Results 09/03/21 09/03/21 09/03/21 Range/Units 10:05 10:05 10:05 WBC 14.94 H (4.8-10.8) K/uL RBC 5.42 (4.7-6.1) M/uL Hgb 16.5 (14.0-18.0) g/dL Hct 48.6 (42-52) % MCV 89.7 (80-100) fL MCH 30.4 (25-34) pg MCHC 34.0 (32-36) g/dL RDW Std Deviation 43.8 (36.4-46.3) fL RDW Coeff of Demetris 13.4 (11.5-14.5) % Plt Count 129 L (130-400) K/uL MPV 10.1 (7.4-10.4) fL Immature Gran % (Auto) 0.3 % Neut % (Auto) 74.0 % Lymph % (Auto) 15.4 % Sibley % (Auto) 9.2 % Eos % (Auto) 1.0 % Baso % (Auto) 0.1 % Neut # (Auto) 11.05 H (1.4-6.5) K/uL Lymph # (Auto) 2.30 (1.2-3.4) K/uL Sibley # (Auto) 1.38 H (0.11-0.59) K/uL Eos # (Auto) 0.15 (0-0.5) K/uL Baso # (Auto) 0.02 (0-0.2) K/uL Immature Gran # (Auto) 0.04 H (0.00-0.02) K/uL D-Dimer 6250 H* (0-500) ug/L FEU Sodium 135 L (136-145) mmol/L Potassium 4.3 (3.5-5.1) mmol/L Chloride 105 (98-107) mmol/L Carbon Dioxide 24 (21-32) mmol/L Anion Gap 6.0 (3-11) BUN 21 H (7-18) mg/dl Creatinine 1.17 (0.6-1.4) mg/dl Est Cr Clr Drug Dosing Not Reportable Est GFR ( Amer) 75.4 ml/min Est GFR (Non-Af Amer) 65.0 ml/min BUN/Creatinine Ratio 17.7 (10-20) Glucose 130 H (70-99) mg/dl Calcium 10.1 (8.5-10.1) mg/dl Magnesium 2.0 (1.8-2.4) mg/dl Total Bilirubin 1.3 H (0.2-1) mg/dl AST 16 (15-37) U/L ALT 27 (12-78) Alkaline Phosphatase 78 (45-117) U/L Troponin I < 0.015 (0-0.045) ng/ml NT-Pro-B Natriuret Pep 527 (0-900) pg/ml Total Protein 8.7 H (6.4-8.2) gm/dl Albumin 3.5 (3.4-5.0) gm/dl Globulin 5.2 H (2.5-4.0) gm/dl Albumin/Globulin Ratio 0.7 L (0.9-2) Procalcitonin (0-0.5) ng/ml SARS-CoV-2 (PCR) (Negative) Influenza Type A (PCR) (Neg) Influenza Type B (PCR) (Neg) RSV (RT-PCR) (Neg) 09/03/21 09/03/21 Range/Units 10:05 10:30 WBC (4.8-10.8) K/uL RBC (4.7-6.1) M/uL Hgb (14.0-18.0) g/dL Hct (42-52) % MCV (80-100) fL MCH (25-34) pg MCHC (32-36) g/dL RDW Std Deviation (36.4-46.3) fL RDW Coeff of Demetris (11.5-14.5) % Plt Count (130-400) K/uL MPV (7.4-10.4) fL Immature Gran % (Auto) % Neut % (Auto) % Lymph % (Auto) % Sibley % (Auto) % Eos % (Auto) % Baso % (Auto) % Neut # (Auto) (1.4-6.5) K/uL Lymph # (Auto) (1.2-3.4) K/uL Sibley # (Auto) (0.11-0.59) K/uL Eos # (Auto) (0-0.5) K/uL Baso # (Auto) (0-0.2) K/uL Immature Gran # (Auto) (0.00-0.02) K/uL D-Dimer (0-500) ug/L FEU Sodium (136-145) mmol/L Potassium (3.5-5.1) mmol/L Chloride (98-107) mmol/L Carbon Dioxide (21-32) mmol/L Anion Gap (3-11) BUN (7-18) mg/dl Creatinine (0.6-1.4) mg/dl Est Cr Clr Drug Dosing Est GFR ( Amer) ml/min Est GFR (Non-Af Amer) ml/min BUN/Creatinine Ratio (10-20) Glucose (70-99) mg/dl Calcium (8.5-10.1) mg/dl Magnesium (1.8-2.4) mg/dl Total Bilirubin (0.2-1) mg/dl AST (15-37) U/L ALT (12-78) Alkaline Phosphatase (45-117) U/L Troponin I (0-0.045) ng/ml NT-Pro-B Natriuret Pep (0-900) pg/ml Total Protein (6.4-8.2) gm/dl Albumin (3.4-5.0) gm/dl Globulin (2.5-4.0) gm/dl Albumin/Globulin Ratio (0.9-2) Procalcitonin 0.12 (0-0.5) ng/ml SARS-CoV-2 (PCR) NEGATIVE (Negative) Influenza Type A (PCR) Negative (Neg) Influenza Type B (PCR) Negative (Neg) RSV (RT-PCR) Negative (Neg) Imaging Data Radiologist's Impression: Chest X-Ray 09/03/21 09:53 XR chest 1V portable CLINICAL HISTORY: right lateral cp, sob TECHNIQUE: Single frontal radiograph of the chest was obtained. Comparison: None available at the time of this dictation. FINDINGS: No lines and tubes are seen. The cardiomediastinal silhouette is normal. Bilateral lower lung predominant airspace opacities are seen. No evidence of pleural effusion or pneumothorax. IMPRESSION: Bilateral lower lung predominant airspace opacities which may represent atelectasis, pneumonia, and/or aspiration. ACT 112: Negative or not required by law. Electronically signed by: Too Wilkinson M.D. 09/03/2021 10:15 AM Chest CTA 09/03/21 10:09 CT angio chest PE protocol CT DOSE: 1000.22 mGy.cm HISTORY: 65 years-old Male with PE. Acute shortness of breath with right-sided chest pain TECHNIQUE: Multiple CTA images of the chest were obtained after the intravenous administration of 120 ml Optiray. Coronal and sagittal MIPS were obtained from the axial data set and were submitted for review. All measurements were obtained according to NASCET criteria. A dose lowering technique was utilized adhering to the principles of ALARA. COMPARISON: Chest radiograph of same day, CTA chest 04/12/2017 FINDINGS: CTA: Mild cardiomegaly with mild coronary artery calcifications. No thoracic aortic aneurysm or dissection. Patency of the imaged great vessels. There is extensive bilateral pulmonary emboli which are noted within the distal main pulmonary arteries extending into the lobar, segmental and subsegmental branches bilaterally, right greater than left. There is mild straightening of the intraventricular septum. CT CHEST: Unremarkable thyroid. No pathologically enlarged lymph nodes. Trace right pleural effusion. No pneumothorax or overt pulmonary edema. There are patchy groundglass densities with intermixed consolidation within the right middle lobe with additional subsegmental bibasilar consolidation. Subsegmental 1.3 x 1.0 cm subsolid nodule of the basal left lower lobe on image 120 series 4 containing a few coarse calcifications appears stable to slightly increased in size from prior. Unchanged minimal ill-defined groundglass densities of the left upper lobe. Central airways are patent. Mild nonspecific distal esophageal wall thickening. Hepatic steatosis. Unremarkable soft tissues. No acute fracture. Degenerative changes of the spine and shoulders. IMPRESSION: 1. Extensive bilateral pulmonary emboli with suggested right heart strain. 2. Trace right pleural effusion with mild bibasilar atelectasis. Groundglass and consolidative opacities of the right middle lobe may represent an infectious or inflammatory pneumonitis versus developing pulmonary infarcts. 3. Subsegmental subpleural nodule containing calcifications within the basal left lower lobe measuring 1.3 x 1.0 cm appears stable to only slightly increased in size from the 2017 comparison. A one-year follow-up chest CT is recommended to exclude a low-grade malignancy. ACT 112: Negative or not required by law. The above report was generated using voice recognition software. It may contain grammatical, syntax or spelling errors. Electronically signed by: Jason Lora M.D. 09/03/2021 11:42 AM Venous Doppler Study 09/03/21 11:46 BILATERAL LOWER EXTREMITY VENOUS DOPPLER HISTORY: Pulmonary emboli. Assess for DVT. leg swelling. COMPARISON STUDY: None. FINDINGS: There is normal compressibility, flow, and augmentation within the left lower extremity deep venous system. The right common femoral and superficial femoral veins are patent. There is occlusive thrombus within the right popliteal vein. The right calf vessels are patent. IMPRESSION: 1. Right popliteal deep vein thrombosis. 2. No DVT within the left lower extremity. ACT 112: Negative or not required by law. Electronically signed by: Gabriel Rothman M.D. 09/03/2021 1:50 PM ECG Data Attestation: I personally reviewed and interpreted this ECG as follows: Indication: + SOB/dyspnea Rate (beats per minute): 108 Rhythm: + sinus tachycardia ECG Intervals/blocks: + Normal QRS and + Normal QT ECG Elmer: + Normal ECG ST segments: + T-wave inversions (III) ECG Findings: + Q waves (III) MDM Narrative PESI 105 This is a 65-year-old male who presents with abrupt onset of right-sided chest/rib pain with accompanying increased shortness of breath. Patient found to be hypoxic and tachycardic on arrival, in moderate distress and uncomfortable appearing. Patient denied trauma or recent illness. Patient placed on oxygen via nasal cannula which did improve his saturations. Patient is a slightly difficult historian. Labs drawn and sent, chest x-ray performed. Patient did have appearance of possible bilateral infiltrate and evolving effusion on chest x-ray. Upon further discussion patient he admitted to prior DVT/PE. No chronic anticoagulation. CT angiography of the chest ordered. Patient given several medications for pain and started on IV fluids as a precaution. D-dimer did result elevated prior to patient going to CT. Patient found to have extensive bilateral PEs with CT evidence of right heart strain. Troponin negative. Patient started on heparin, and ultrasound of the lower extremities added. Patient denies any known malignancy. Patient did eventually admit to recent travel to [place]. I suspect leukocytosis reactive, I have a lower suspicion of occult infectious etiology. Covid swab negative. Case discussed with hospitalist for additional evaluation and management. An order was placed for continuous cardiac monitoring. The monitor shows a rate of _106_ with _sinus tachycardia_ rhythm. Impression & Plan Chest pain, Bilateral pulmonary embolism, Acute respiratory failure with hypoxia, Leukocytosis, DVT (deep venous thrombosis) Discharge Plan Visit Data Chief Complaint: Abdominal Pain Stated Complaint: PAIN IN ULQ, POSSIBLE BLOOD CLOT ED Provider: Alicia Workman Discharge Problem: Chest pain, Bilateral pulmonary embolism, Acute respiratory failure with hypoxia, Leukocytosis, DVT (deep venous thrombosis) Patient Disposition: Being Evaluated by Hospitalist
[2021-09-03] MEDS: fentaNYL citrate 100 MCG/2 ML VIAL IV PRN ×3 (10:13→23:29)
[2021-09-03] MEDS: SODIUM CHLORIDE 0.9% 1000ML 1,000 ML IV SCH ×2 (10:15→18:12)
[2021-09-03 10:17] LABS: Basophils # (auto) 0.02 K/uL (0-0.2); Basophils % (auto) 0.1 %; Eosinophils # (auto) 0.15 K/uL (0-0.5); Hematocrit (blood only) 48.6 % (42-52); Hemoglobin 16.5 g/dL (14.0-18.0); Immature Granulocytes # (auto) 0.04 K/uL (0.00-0.02); Immature Granulocytes % (auto) 0.3 %; Lymphocytes % (auto) 15.4 %; Mean Corpuscular Hemoglobin 30.4 pg (25-34); Mean Corpuscular Volume 89.7 fL (80-100); Mean Platelet Volume 10.1 fL (7.4-10.4); Monocytes # (auto) 1.38 K/uL (0.11-0.59); Monocytes % (auto) 9.2 %; Neutrophils # (auto) 11.05 K/uL (1.4-6.5); Platelet Count 129 K/uL (130-400); RDW Coefficient of Variation 13.4 % (11.5-14.5); RDW Standard Deviation 43.8 fL (36.4-46.3); Red Blood Count 5.42 M/uL (4.7-6.1); White Blood Count 14.94 K/uL (4.8-10.8)
--- NOTE | 2021-09-03 10:17 | XRay Report ---
XR chest 1V portable CLINICAL HISTORY: right lateral cp, sob TECHNIQUE: Single frontal radiograph of the chest was obtained. Comparison: None available at the time of this dictation. FINDINGS: No lines and tubes are seen. The cardiomediastinal silhouette is normal. Bilateral lower lung predomi nant airspace opacities are seen. No evidence of pleural effusion or pneumothorax. IMPRESSION: Bilateral lower lung predominant airspace opacities which may represent atelectasis, pneumonia, and/o r aspiration. ACT 112: Negative or not required by law. Electronically signed by: Too Wilkinson M.D. 09/03/2021 10:15 AM
[2021-09-03 10:37] LABS: D Dimer 6250 ug/L FEU (0-500)
[2021-09-03 10:46] LABS: Alanine Aminotransferase 27 (12-78); Albumin Level 3.5 gm/dl (3.4-5.0); Aspartate Aminotransferase 16 U/L (15-37); BUN Creatinine Ratio 17.7 (10-20); Blood Urea Nitrogen 21 mg/dl (7-18); Calcium 10.1 mg/dl (8.5-10.1); Carbon Dioxide 24 mmol/L (21-32); Chloride 105 mmol/L (98-107); Est GFR (African American) 75.4 ml/min; Glucose 130 mg/dl (70-99); Potassium 4.3 mmol/L (3.5-5.1); Sodium 135 mmol/L (136-145)
[2021-09-03 10:51] LABS: Albumin Globulin Ratio 0.7 (0.9-2); Alkaline Phosphatase 78 U/L (45-117); Bilirubin,Total 1.3 mg/dl (0.2-1); Globulin 5.2 gm/dl (2.5-4.0); NT Pro B Type Natriuretic Pept 527 pg/ml (0-900); Total Protein 8.7 gm/dl (6.4-8.2); Troponin I < 0.015 ng/ml (0-0.045)
[2021-09-03 11:14] LABS: Influenza A virus by PCR Negative (Neg); Influenza B virus by PCR Negative (Neg); RSV by PCR Negative (Neg); SARS CoV2 RNA(COVID-19) InHosp NEGATIVE (Negative)
[2021-09-03] MEDS ORDERED: OPTIRAY 320 125ml IV ONE (11:15)
--- NOTE | 2021-09-03 11:43 | CT Scan Report ---
CT angio chest PE protocol CT DOSE: 1000.22 mGy.cm HISTORY: 65 years-old Male with PE. Acute shortness of breath with right-sided chest pain TECHNIQUE: Multiple CTA images of the chest were obtained after the intravenous administration of 120 ml Optiray. Coronal and sagittal MIPS were obtained from the axial data set and were submitted for review. All measurements were obtained according to NASCET criteria. A dose lowering technique was u tilized adhering to the principles of ALARA. COMPARISON: Chest radiograph of same day, CTA chest 04/12/2017 FINDINGS: CTA: Mild cardiomegaly with mild coronary artery calcifications. No thoracic aortic aneurysm or dissection . Patency of the imaged great vessels. There is extensive bilateral pulmonary emboli which are noted within the distal main pulmonary arteries extending into the lobar, segmental and subsegmental branch es bilaterally, right greater than left. There is mild straightening of the intraventricular septum. CT CHEST: Unremarkable thyroid. No pathologically enlarged lymph nodes. Trace right pleural effusion. No pneumo thorax or overt pulmonary edema. There are patchy groundglass densities with intermixed consolidation within the right middle lobe with additional subsegmental bibasilar consolidation. Subsegmental 1.3 x 1.0 cm subsolid nodule of the basal left lower lobe on image 120 series 4 containing a few coarse c alcifications appears stable to slightly increased in size from prior. Unchanged minimal ill-defined groundglass densities of the left upper lobe. Central airways are patent. Mild nonspecific distal esophageal wall thickening. Hepatic steatosis. Unremarkable soft tissues. No acute fracture. Degenerative changes of the spine and shoulders. IMPRESSION: 1. Extensive bilateral pulmonary emboli with suggested right heart strain. 2. Trace right pleural effusion with mild bibasilar atelectasis. Groundglass and consolidative opacit ies of the right middle lobe may represent an infectious or inflammatory pneumonitis versus developin g pulmonary infarcts. 3. Subsegmental subpleural nodule containing calcifications within the basal left lower lobe measurin g 1.3 x 1.0 cm appears stable to only slightly increased in size from the 2017 comparison. A one-year follow-up chest CT is recommended to exclude a low-grade malignancy. ACT 112: Negative or not required by law. The above report was generated using voice recognition software. It may contain grammatical, syntax o r spelling errors. Electronically signed by: Jason Lora M.D. 09/03/2021 11:42 AM
[2021-09-03] MEDS ORDERED: Heparin IV Adult Wt-Based Standard WITH Bolus Protocol IV STA (11:46)
[2021-09-03] MEDS ORDERED: HEPARIN SOD (PORCINE) 1000 UNIT/ML IV ONE (12:02)
[2021-09-03] MEDS: HEPARIN SODIUM/DEXTROSE 25,000 UNITS/500 ML BAG IV SCH (12:19)
[2021-09-03 12:30] LABS: Partial Thromboplastin Time 26.9 Seconds (21.0-31.0)
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
--- NOTE | 2021-09-03 13:51 | Ultrasound Report ---
BILATERAL LOWER EXTREMITY VENOUS DOPPLER HISTORY: Pulmonary emboli. Assess for DVT. leg swelling. COMPARISON STUDY: None. FINDINGS: There is normal compressibility, flow, and augmentation within the left lower extremity timbo p venous system. The right common femoral and superficial femoral veins are patent. There is occlusiv e thrombus within the right popliteal vein. The right calf vessels are patent. IMPRESSION: 1. Right popliteal deep vein thrombosis. 2. No DVT within the left lower extremity. ACT 112: Negative or not required by law. Electronically signed by: Gabriel Rothman M.D. 09/03/2021 1:50 PM
[2021-09-03] MEDS: MoRPHine SULFATE 4 MG/ML 1 ML CARP\\VIAL IV PRN (14:52)
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
--- NOTE | 2021-09-03 16:17 | Electrocardiogram Report ---
Test Reason : Blood Pressure : / mmHG Vent. Rate : 108 BPM Atrial Rate : 108 BPM P-R Int : 150 ms QRS Dur : 094 ms QT Int : 314 ms P-R-T Axes : 026 -07 026 degrees QTc Int : 420 ms Sinus tachycardia with occasional Premature ventricular complexes Otherwise normal ECG When compared with ECG of 13-APR-2017 07:00, Premature ventricular complexes are now Present Vent. rate has increased BY 53 BPM Confirmed by Satinder Hollingsworth ([id number]) on 09/03/2021 4:17:31 PM Referred By: Confirmed By:Satinder Hollingsworth
[2021-09-03 19:51] LABS: Partial Thromboplastin Ratio 1.5; Partial Thromboplastin Time 39.7 Seconds (21.0-31.0)
[2021-09-03] MEDS ORDERED: HEPARIN SOD (PORCINE) 1000 UNIT/ML ONE (21:08)
[2021-09-04] MEDS: SODIUM CHLORIDE 0.9% 1000ML 1,000 ML IV SCH ×2 (00:32→07:33)
[2021-09-04 00:47] LABS: Partial Thromboplastin Ratio 1.5; Partial Thromboplastin Time 40.2 Seconds (21.0-31.0)
[2021-09-04] MEDS: HEPARIN SODIUM/DEXTROSE 25,000 UNITS/500 ML BAG IV SCH ×2 (04:29→15:30)
[2021-09-04] MEDS: MoRPHine SULFATE 4 MG/ML 1 ML CARP\\VIAL IV PRN (07:31)
[2021-09-04 07:32] LABS: Hematocrit (blood only) 42.4 % (42-52); Hemoglobin 14.3 g/dL (14.0-18.0); Mean Corpuscular Hemoglobin 30.6 pg (25-34); Mean Corpuscular Hgb Conc 33.7 g/dL (32-36); Mean Corpuscular Volume 90.6 fL (80-100); Mean Platelet Volume 10.2 fL (7.4-10.4); Platelet Count 114 K/uL (130-400); RDW Coefficient of Variation 13.6 % (11.5-14.5); Red Blood Count 4.68 M/uL (4.7-6.1)
[2021-09-04 07:58] LABS: Partial Thromboplastin Ratio 1.8
[2021-09-04 08:06] LABS: BUN Creatinine Ratio 16.3 (10-20); Calcium 8.5 mg/dl (8.5-10.1); Creatinine Clr Calc Pharmacy 109.6 ml/min; Est GFR (Non-African American) 83.7 ml/min; Potassium 3.7 mmol/L (3.5-5.1)
[2021-09-04 08:27] LABS: Partial Thromboplastin Time 47.2 Seconds (21.0-31.0)
[2021-09-04] MEDS: ACETAMINOPHEN 500 MG TAB PO SCH ×2 (12:24→21:00)
--- NOTE | 2021-09-04 14:08 | Pulmonology Progress Note ---
Date of Service September 04, 2021 Assessment & Plan (1) Acute respiratory failure with hypoxia: (2) Bilateral pulmonary embolism: (3) Pleuritic chest pain: (4) Pulmonary nodule: Plan: CTA chest 09/03/2021 personally reviewed: Large pulmonary embolus of the right pulmonary artery appreciated Groundglass opacities in the right middle lobe likely representing possib le infarct Left lower lobe part calcified nodule (seems like popcorn calcification) Possible right heart strain No mediastinal lymphadenopathy --Acute pulmonary embolism Bilateral, submassive Mild right heart strain on the CTA chest sPESI: 1 for O2 saturation <90 on room air 2D echo does show right heart strain with Palencia sign TPA could be considered in patient's case. The risk and benefit was explained to the patient in the presence of patient's , they both opted to continue w ith heparin drip --Acute hypoxic respiratory failure Secondary to above Continue with O2 supplementation to keep O2 saturation 90 and above --Pleuritic chest pain Likely secondary to PE with possible development of pulmonary infarct I would recommend the patient to use incentive spirometry and give pain medication for the pain --Left lower lobe pulmonary nodule Partly calcified In a patient is a lifetime non-smoker likely benign Can repeat a CAT scan in 1 year Plan: Patient was to continue with heparin drip He is hemodynamically stable saturation is improved on 4 L Can gradually titrate down the O2 Would recommend to repeat 2D echo in 3 months Continue with incentive spirometry with pain medications if the pain is severe No further recommendation from pulmonary perspective. Will sign off. Please call directly with any questions Please note the above document was generated using voice recognition software. It may contain grammatical, syntax or spelling errors.Any formal questions or concerns about the content, text or information contained within the body of this dictation should be directly addressed to the provider for clarification. Admission and Anticipated Discharge Date Admission Date: September 03, 2021 Subjective Patient seen and examined at bedside. No acute distress, no dressings overnight Patient was on 4 L nasal cannula. Stating that he is feeling better compared to when he came to the hospital Still complaining of pain when he takes deep breath. He has been getting pain medication He has been using incentive spirometry as well Patient's is also in the room Review of Systems Review of Systems: All systems reviewed & are unremarkable except as noted in Subjective Physical Exam Physical Exam: Constitutional: No acute distress HEENT: EOMI, PERRLA Respiratory system: Decreased air entry bilaterally, more decreased on the right side, no wheeze, no, positive crackles bilateral lower lobes CVS: S1-S2 positive, no murmurs or gallops Abdomen: Soft, nontender, nondistended, positive bowel sounds x4, obese Extremities: +2 pulses bilaterally radialis/ dorsalis pedis, no cyanosis, no edema Neuro: Awake alert oriented x3 Psych: Normal mood and affect G/U: No Tanner Skin: no rashes, warm and dry Lymphatic: no cervical or axillary lymphadenopathy Results & Data Results & Data ([place]) Vital Signs (Past 12 Hours) Vital Signs Temp Pulse Pulse Resp BP Pulse Ox 09/04/21 11:33 37.0 C 74 20 145/73 H 96 09/04/21 08:00 92 H 09/04/21 07:53 36.9 C 86 18 139/64 95 09/04/21 02:59 36.8 C 93 H 24 145/84 H 93 Laboratory Results 09/04/21 06:53 09/04/21 06:53 PG Care Time/CCT Total # of Minutes Spent Total Time Spent with Patient: Total time spent is greater than 50% in coordination of care (as documented) at patient's floor/unit and/or counseling patient: Coding [place] [address] Subseq Hosp Care Lvl 2 Patient Type Established Diagnoses Acute respiratory failure with hypoxia J96.01 Bilateral pulmonary embolism I26.99 Pleuritic chest pain R07.81 Pulmonary nodule R91.1
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
[2021-09-04] MEDS: ACETAMINOPHEN 325 MG TAB PO PRN (20:45)
[2021-09-05] MEDS: HEPARIN SODIUM/DEXTROSE 25,000 UNITS/500 ML BAG IV SCH ×3 (01:56→23:20)
[2021-09-05] MEDS: MoRPHine SULFATE 4 MG/ML 1 ML CARP\\VIAL IV PRN (07:34)
[2021-09-05 08:27] LABS: Partial Thromboplastin Ratio 1.9
[2021-09-05 08:32] LABS: Partial Thromboplastin Time 50.5 Seconds (21.0-31.0)
[2021-09-05] MEDS: ACETAMINOPHEN 500 MG TAB PO SCH ×3 (08:49→20:44)
[2021-09-05 08:56] LABS: Basophils # (auto) 0.02 K/uL (0-0.2); Basophils % (auto) 0.2 %; Eosinophils # (auto) 0.31 K/uL (0-0.5); Eosinophils % (auto) 3.1 %; Hematocrit (blood only) 41.6 % (42-52); Hemoglobin 13.9 g/dL (14.0-18.0); Immature Granulocytes # (auto) 0.02 K/uL (0.00-0.02); Immature Granulocytes % (auto) 0.2 %; Lymphocytes # (auto) 1.32 K/uL (1.2-3.4); Lymphocytes % (auto) 13.3 %; Mean Corpuscular Hemoglobin 30.2 pg (25-34); Mean Corpuscular Hgb Conc 33.4 g/dL (32-36); Mean Corpuscular Volume 90.4 fL (80-100); Mean Platelet Volume 9.6 fL (7.4-10.4); Monocytes # (auto) 0.79 K/uL (0.11-0.59); Monocytes % (auto) 7.9 %; Neutrophils # (auto) 7.49 K/uL (1.4-6.5); Neutrophils % (auto) 75.3 %; Platelet Count 122 K/uL (130-400); RDW Coefficient of Variation 13.5 % (11.5-14.5); RDW Standard Deviation 44.5 fL (36.4-46.3); White Blood Count 9.95 K/uL (4.8-10.8)
[2021-09-05 09:15] LABS: BUN Creatinine Ratio 17.1 (10-20); Creatinine Clr Calc Pharmacy 109.6 ml/min; Est GFR (African American) 95.8 ml/min; Est GFR (Non-African American) 82.6 ml/min; Potassium 3.9 mmol/L (3.5-5.1)
[2021-09-05] MEDS ORDERED: traMADol HCL 50 MG TABLET PO PRN (12:37)
--- NOTE | 2021-09-05 15:59 | Hospitalist Progress Note ---
Date of Service September 05, 2021 Assessment & Plan (1) Acute respiratory failure with hypoxia: (2) Bilateral pulmonary embolism: Plan: Submassive, Acute Bilateral Pulmonary Embolism R Popliteal DVT -Admit to telemetry -Patient presenting from home with reports of right rib pain and worsening shortness of breath. History of DVT and PE in the setting of prolonged car rides. Patient completed 3 months of Eliquis therapy. Noted patient recently completed a trip to [place] via car a couple of weeks ago. -In the ED, CTA chest showing extensive bilateral pulmonary embolism with right heart strain and possible early pulmonary infarct. 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 Desir- recommend Lovenox BID x 1 week, then NOACs discussed with patient at length he adamantly declines Lovenox SC because he "does not likel needles at all" explained Eliquis may not be as effective as NOACs during this phase patient verbalized understanding and agreement PRN Tramadol for pain (3) Leukocytosis: Plan: -WBC 14 K, likely reactive -Afebrile, no cough or sputum production, negative procalcitonin -No other infectious sources noted 09/05/21 resolved no focus of infection identified at this time (4) DVT prophylaxis: Plan: -On IV heparin drip plan of care discussed with patient in detail and at length all questions answered he is understanding, agreeable, comfortable with the plan of care Admission and Anticipated Discharge Date Admission Date: September 03, 2021 Subjective ff up for acute bilateral pulmonary embolism, etc seen resting in bed, comfortable sitting up on 4 L nasal cannula last night ambulated with no O2, sat was 75% reports chest pain, right side, improved with analgesics no bleeding Review of Systems Review of Systems: all noted and negative except for above Physical Exam Physical Exam: General- oriented x 2, not in distress, speaks in sentences with no effort or accessory muscle use Eyes- anicteric Neck- no JVD Lungs- clear breath sounds bilaterally Heart- normal rate, regular rhythm; no murmurs Abdomen- normal bowel sounds, nondistended, soft, nontender Extremities- no pretibial edema, no calf tenderness Neuro- alert, oriented x 3; no gross focal neurologic deficits Skin- warm & dry Results & Data Results & Data ([facility]) Vital Signs (Past 12 Hours) Vital Signs Temp Pulse Pulse Resp BP Pulse Ox 09/05/21 11:54 36.8 C 89 16 133/61 97 09/05/21 08:00 37.0 C 81 76 22 124/60 95 09/05/21 04:05 37.0 C 74 24 136/81 93 all noted and reviewed including below (1) Leukocytosis Leukocytosis type: unspecified Qualified Code(s): D72.829 - Elevated white blood cell count, unspecified
[2021-09-06] MEDS: ACETAMINOPHEN 325 MG TAB PO PRN (03:43)
[2021-09-06 06:38] LABS: Basophils # (auto) 0.01 K/uL (0-0.2); Basophils % (auto) 0.1 %; Eosinophils # (auto) 0.39 K/uL (0-0.5); Eosinophils % (auto) 4.4 %; Hematocrit (blood only) 41.8 % (42-52); Immature Granulocytes # (auto) 0.02 K/uL (0.00-0.02); Immature Granulocytes % (auto) 0.2 %; Lymphocytes # (auto) 1.48 K/uL (1.2-3.4); Lymphocytes % (auto) 16.8 %; Mean Corpuscular Hgb Conc 33.5 g/dL (32-36); Mean Corpuscular Volume 89.7 fL (80-100); Mean Platelet Volume 10.1 fL (7.4-10.4); Monocytes # (auto) 0.88 K/uL (0.11-0.59); Neutrophils # (auto) 6.03 K/uL (1.4-6.5); Neutrophils % (auto) 68.5 %; Platelet Count 140 K/uL (130-400); RDW Coefficient of Variation 13.3 % (11.5-14.5); RDW Standard Deviation 43.5 fL (36.4-46.3); Red Blood Count 4.66 M/uL (4.7-6.1); White Blood Count 8.81 K/uL (4.8-10.8)
[2021-09-06 07:06] LABS: BUN Creatinine Ratio 17.3 (10-20); Calcium 9.4 mg/dl (8.5-10.1); Creatinine Clr Calc Pharmacy 99.6 ml/min; Est GFR (African American) 84.9 ml/min; Est GFR (Non-African American) 73.3 ml/min; Potassium 3.7 mmol/L (3.5-5.1)
[2021-09-06 07:28] LABS: Partial Thromboplastin Ratio 1.8
[2021-09-06 07:44] LABS: Partial Thromboplastin Time 47.6 Seconds (21.0-31.0)
[2021-09-06] MEDS: ACETAMINOPHEN 500 MG TAB PO SCH ×2 (08:44→14:30)
[2021-09-06] MEDS ORDERED: APIXABAN 5 MG TABLET PO SCH (10:30)
--- NOTE | 2021-09-20 18:19 | Hospitalist Progress Note ---
Date of Service September 20, 2021 Delayed entry Date of service September 06, 2021 Assessment & Plan (1) Acute respiratory failure with hypoxia: (2) Bilateral pulmonary embolism: Plan: Submassive, Acute Bilateral Pulmonary Embolism R Popliteal DVT -Admit to telemetry -Patient presenting from home with reports of right rib pain and worsening shortness of breath. History of DVT and PE in the setting of prolonged car rides. Patient completed 3 months of Eliquis therapy. Noted patient recently completed a trip to [place] via car a couple of weeks ago. -In the ED, CTA chest showing extensive bilateral pulmonary embolism with right heart strain and possible early pulmonary infarct. 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 Desir- recommend Lovenox BID x 1 week, then NOACs discussed with patient at length he adamantly declines Lovenox SC because he "does not like needles at all" explained Eliquis may not be as effective as NOACs during this phase patient verbalized understanding and agreement Eliquis not covered by patient's insurance after checking Discharge plan: Xarelto As needed tramadol Follow-up with PCP in 1 week (3) Leukocytosis: Plan: -WBC 14 K, likely reactive -Afebrile, no cough or sputum production, negative procalcitonin -No other infectious sources noted 09/06/21 resolved no focus of infection identified at this time (4) DVT prophylaxis: Plan: plan of care discussed with patient in detail and at length all questions answered he is understanding, agreeable, comfortable with the plan of care Admission and Anticipated Discharge Date Admission Date: September 03, 2021 Subjective Follow-up acute bilateral pulmonary embolism, etc. Resting in bed, comfortable, not in distress States he feels better overall Has mild to moderate chest pain No shortness of breath Denies dizziness, palpitations, nausea vomiting No bleeding No other symptoms Review of Systems Review of Systems: all noted and negative except for above Physical Exam Physical Exam: General- oriented x 3, not in distress, speaks in sentences with no effort or accessory muscle use Eyes- anicteric Neck- no JVD Lungs- clear breath sounds bilaterally, no rales/wheezes Heart- normal rate, regular rhythm; no murmurs Abdomen- normal bowel sounds, nondistended, soft, nontender Extremities- no pretibial edema, no calf tenderness Neuro- alert, oriented x 3; no gross focal neurologic deficits Skin- warm & dry (1) Leukocytosis Leukocytosis type: unspecified Qualified Code(s): D72.829 - Elevated white blood cell count, unspecified
--- NOTE | 2021-09-20 18:22 | Discharge Summary ---
Date of Service September 20, 2021 Admission HPI Per Admitting Provider 65-year-old male with PMH HTN (currently not on meds), history of DVT and PE in 2017 completing 3 months of Eliquis therapy, and other problems to below who presents to the ED for evaluation of shortness of breath and right rib pain. Patient reports that 4 days ago, he developed a right-sided rib pain that was worse with inspiration. He also noted increasing shortness of breath with minimal exertion. Patient denies chest pain and palpitations. No lower extremity edema or pain. Denies lightheadedness, dizziness, diaphoresis, syncopal events. No abdominal pain, nausea, vomiting, diarrhea. Denies urinary symptoms. Patient notes traveling to [place] by car a couple of weeks ago. In the ED, CTA chest showing extensive bilateral pulmonary embolism. Patient is requiring 2 L of oxygen via nasal cannula to maintain saturations. Patient was given IV Tylenol, IV fentanyl, IVF, and started on a heparin drip. Admission Exam (Per Admitting) Constitutional Constitutional: WD/WN, vitals as above Eyes: PERRL, conjunctivae normal, anicteric sclerae ENMT: external ear and nose normal, oropharynx normal Respiratory: normal respiratory effort; no respiratory distress Auscultation: + diminished lung sounds (Bilateral) Cardiovascular: Rate/Rhythm: regular rate and regular rhythm Vessels: normal peripheral pulses Extremities: no edema Gastrointestinal (Abdomen): normal bowel sounds, soft, nontender, no hepatosplenomegaly Musculoskeletal: no cyanosis or clubbing, extremities motor strength 5/5 Skin: no rashes, warm and dry Neurologic: PERRL, EOMI, accommodation nl, no face palsy, no dysarthria Psychiatric:L A+Ox3, euthymic affect Discharge Data Consultations 09/03/21 12:00 ED Decision to Admit Stat 09/03/21 13:00 Consult Pulmonology Routine Procedures Performed CT angio chest PE protocol CT DOSE: 1000.22 mGy.cm HISTORY: 65 years-old Male with PE. Acute shortness of breath with right-sided chest pain TECHNIQUE: Multiple CTA images of the chest were obtained after the intravenous administration of 120 ml Optiray. Coronal and sagittal MIPS were obtained from the axial data set and were submitted for review. All measurements were obtained according to NASCET criteria. A dose lowering technique was utilized adhering to the principles of ALARA. COMPARISON: Chest radiograph of same day, CTA chest 04/12/2017 FINDINGS: CTA: Mild cardiomegaly with mild coronary artery calcifications. No thoracic aortic aneurysm or dissection. Patency of the imaged great vessels. There is extensive bilateral pulmonary emboli which are noted within the distal main pulmonary arteries extending into the lobar, segmental and subsegmental branches bi laterally, right greater than left. There is mild straightening of the intraventricular septum. CT CHEST: Unremarkable thyroid. No pathologically enlarged lymph nodes. Trace right pleural effusion. No pneumothorax or overt pulmonary edema. There are patchy groundglass densities with intermixed consolidation within the right middle lobe with additional subsegmental bibasilar consolidation. Subsegmental 1.3 x 1.0 cm subsolid nodule of the basal left lower lobe on image 120 series 4 containing a few coarse calcifications appears stable to slightly increased in size from prior. Unchanged minimal ill-defined groundglass densities of the left upper lobe. Central airways are patent. Mild nonspecific distal esophageal wall thickening. Hepatic steatosis. Unremarkable soft tissues. No acute fracture. Degenerative changes of the spine and shoulders. IMPRESSION: 1. Extensive bilateral pulmonary emboli with suggested right heart strain. 2. Trace right pleural effusion with mild bibasilar atelectasis. Groundglass and consolidative opacities of the right middle lobe may represent an infectious or inflammatory pneumonitis versus developing pulmonary infarcts. 3. Subsegmental subpleural nodule containing calcifications within the basal left lower lobe measuring 1.3 x 1.0 cm appears stable to only slightly increased in size from the 2017 comparison. A one-year follow-up chest CT is recommended to exclude a low-grade malignancy. ACT 112: Negative or not required by law. The above report was generated using voice recognition software. It may contain grammatical, syntax or spelling errors. Electronically signed by: Jason Lora M.D. 09/03/2021 11:42 AM BILATERAL LOWER EXTREMITY VENOUS DOPPLER HISTORY: Pulmonary emboli. Assess for DVT. leg swelling. COMPARISON STUDY: None. FINDINGS: There is normal compressibility, flow, and augmentation within the left lower extremity deep venous system. The right common femoral and superficial femoral veins are patent. There is occlusive thrombus within the right popliteal vein. The right calf vessels are patent. IMPRESSION: 1. Right popliteal deep vein thrombosis. 2. No DVT within the left lower extremity. ACT 112: Negative or not required by law. Electronically signed by: Gabriel Rothman M.D. 09/03/2021 1:50 PM Hospital Course (1) Acute respiratory failure with hypoxia: (2) Bilateral pulmonary embolism: Submassive, Acute Bilateral Pulmonary Embolism R Popliteal DVT -Admit to telemetry -Patient presenting from home with reports of right rib pain and worsening shortness of breath. History of DVT and PE in the setting of prolonged car rides. Patient completed 3 months of Eliquis therapy. Noted patient recently completed a trip to [place] via car a couple of weeks ago. -In the ED, CTA chest showing extensive bilateral pulmonary embolism with right heart strain and possible early pulmonary infarct. 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 Desir- recommend Lovenox BID x 1 week, then NOACs discussed with patient at length he adamantly declines Lovenox SC because he "does not like needles at all" explained Eliquis may not be as effective as NOACs during this phase patient verbalized understanding and agreement Eliquis not covered by patient's insurance after checking Discharge plan: Xarelto As needed tramadol Follow-up with PCP in 1 week (3) Leukocytosis: -WBC 14 K, likely reactive -Afebrile, no cough or sputum production, negative procalcitonin -No other infectious sources noted 09/06/21 resolved no focus of infection identified at this time (4) DVT prophylaxis: plan of care discussed with patient in detail and at length all questions answered he is understanding, agreeable, comfortable with the plan of care
== END 2021-09-06 17:20 | disposition home or self-care (01) | DRG 175 ==
LOC: ED 09:40 → EDINP 12:12 → 2S 23:21